=== PATIENT | male | born 1975 | race Two or more races ===

== ENCOUNTER 2019-06-27 23:11 | Emergency (ER) | payer SELFPAY ==
[~2019-06-27] VITALS: Ht 160 cm; Wt 88.6 kg
--- NOTE | 2019-06-27 23:33 | PHYS DOC ---
Adult General Chief Complaint Chief Complaint: SHORTNESS OF BREATH HPI HPI 43-year-old male presents to the emergency department complaints of shortness of breath. Patient states this is been ongoing for several days worsening over the last day. He denies any documented fever however he states he felt warm. Denies any nausea, vomiting, abdominal pain, diarrhea nothing makes his symptoms worse, nothing makes his symptoms better. Patient has no past medical history. Patient is taking no medications [id number]. He denies any chest pain. States he has had a sore throat. Review of Systems Review of Systems Constitutional: fever Respiratory: SOB Cardiovascular: No additional information not addressed in HPI [] GI: Denies abdominal pain, nausea, vomiting, bloody stools or diarrhea [] Musculoskeletal: Denies back pain or joint pain [] Integument: Denies rash or skin lesions [] Neurologic: Denies headache, focal weakness or sensory changes [] All other systems were reviewed and found to be within normal limits, except as documented in this note. Allergies Allergies Allergies Coded Allergies Type Severity Reaction Last Updated Verified No Known Drug Allergies 06/27/19 No Physical Exam Physical Exam Constitutional: Well developed, well nourished, no acute distress, non-toxic appearance. [] HENT: Normocephalic, atraumatic, bilateral external ears normal, oropharynx mois t, no oral exudates, nose normal. [] Eyes: PERRLA, EOMI, conjunctiva normal, no discharge. [] Neck: Normal range of motion, no tenderness, supple, no stridor. [] Cardiovascular:Heart rate regular rhythm, no murmur [] Lungs & Thorax: Bilateral breath sounds clear to auscultation [] Abdomen: Bowel sounds normal, soft, no tenderness, no masses, no pulsatile masses. [] Skin: Warm, dry, no erythema, no rash. [] Back: No tenderness, no CVA tenderness. [] Extremities: No tenderness,no edema. [] Neurologic: Alert and oriented X 3, no focal deficits noted. [] Psychologic: Affect normal, judgement normal, mood normal. [] Current Patient Data Vital Signs Vital Signs Date Time Temp Pulse Resp B/P (MAP) Pulse Ox O2 Delivery O2 Flow Rate FiO2 06/27/19 23:26 98.2 81 18 167/99 (121) 98 Room Air 98.2 Lab Values Laboratory Tests Test 06/27/19 23:20 06/27/19 23:23 Influenza Type A Antigen Negative (NEGATIVE) Influenza Type B Antigen Negative (NEGATIVE) White Blood Count 7.5 x10^3/uL (4.0-11.0) Red Blood Count 5.04 x10^6/uL (4.30-5.70) Hemoglobin 14.1 g/dL (13.0-17.5) Hematocrit 43.1 % (39.0-53.0) Mean Corpuscular Volume 85 fL (79-100) Mean Corpuscular Hemoglobin 28 pg (25-35) Mean Corpuscular Hemoglobin Concent 33 g/dL (31-37) Red Cell Distribution Width 13.1 % (11.5-14.5) Platelet Count 196 x10^3/uL (140-400) Neutrophils (%) (Auto) 41 % (31-73) Lymphocytes (%) (Auto) 43 % (24-48) Monocytes (%) (Auto) 12 % (0-9) H Eosinophils (%) (Auto) 2 % (0-3) Basophils (%) (Auto) 1 % (0-3) Neutrophils # (Auto) 3.1 x10^3/uL (1.8-7.7) Lymphocytes # (Auto) 3.2 x10^3/uL (1.0-4.8) Monocytes # (Auto) 0.9 x10^3/uL (0.0-1.1) Eosinophils # (Auto) 0.2 x10^3/uL (0.0-0.7) Basophils # (Auto) 0.0 x10^3/uL (0.0-0.2) Sodium Level 142 mmol/L (136-145) Potassium Level 3.9 mmol/L (3.5-5.1) Chloride Level 104 mmol/L (98-107) Carbon Dioxide Level 30 mmol/L (21-32) Anion Gap 8 (6-14) Blood Urea Nitrogen 26 mg/dL (8-26) Creatinine 1.1 mg/dL (0.7-1.3) Estimated GFR (Cockcroft-Gault) 73.4 BUN/Creatinine Ratio 24 (6-20) H Glucose Level 89 mg/dL (70-99) Calcium Level 9.1 mg/dL (8.5-10.1) Total Bilirubin 0.3 mg/dL (0.2-1.0) Aspartate Amino Transferase (AST) 30 U/L (15-37) Alanine Aminotransferase (ALT) 62 U/L (16-63) Alkaline Phosphatase 77 U/L (46-116) MV-Aqa-H-Type Natriuretic Peptide 10 pg/mL (0-124) Total Protein 7.2 g/dL (6.4-8.2) Albumin 3.9 g/dL (3.4-5.0) Albumin/Globulin Ratio 1.2 (1.0-1.7) Laboratory Tests 06/27/19 23:23 Laboratory Tests 06/27/19 23:23 EKG EKG EKG reviewed 0050, normal sinus rhythm, left axis deviation, no evidence of STEMI [] Radiology/Procedures Radiology/Procedures [facility] [address] [place] [address] IMAGING REPORT Signed PATIENT: PRASANNA MAYS ACCOUNT: [id number] : 1975 LOCATION: ER AGE: 43 SEX: M EXAM STATUS: REG ER ORD. PHYSICIAN: LUZ MARIA BAÑUELOS MD REASON: SOB PROCEDURE: PORTABLE CHEST 1V INDICATION: Shortness of breath COMPARISON: None. FINDINGS: Single view of chest obtained. Cardiac silhouette is prominent in size without focal airspace consolidation or pulmonary edema. Probable calcified granuloma left lung. IMPRESSION: * No focal airspace consolidation or edema. Electronically signed by: Andres Pemberton MD (06/27/2019 11:45 PM) [id number] DICTATED and SIGNED BY: ANDRES PEMBERTON MD DATE: 06/27/19 2345 [] Course & Med Decision Making Course & Med Decision Making Pertinent Labs and Imaging studies reviewed. (See chart for details) []43-year-old male presents to the emergency department complaints of shortness of breath. Patient states this is been ongoing for several days worsening over the last day. He denies any documented fever however he states he felt warm. Denies any nausea, vomiting, abdominal pain, diarrhea nothing makes his symptoms worse, nothing makes his symptoms better. Patient has no past medical history. Patient is taking no medications [id number]. He denies any chest pain. States he has had a sore throat. Labs/Imaging reviewed EKG unremarkable Influenza negative Recommend dc home and follow up with PCP Inhaler added (proair) [place] Disclaimer [place] Disclaimer This electronic medical record was generated, in whole or in part, using a voice recognition dictation system. Departure Departure Impression: Primary Impression: Dyspnea Disposition: 01 HOME, SELF-CARE Condition: IMPROVED Patient Instructions: Shortness of Breath, [id number] Additional Instructions: Recommend follow up with PCP Chest xray and EKG negative No evidence of acute findings suspicious for COVID No fluid or infection appreciated Cardiac enzymes negative Albuterol INH provided upon discharge - this may help with feelings of SOB Scripts Albuterol Sulfate (PROAIR HFA INHALER) 8.5 Gm Hfa.aer.ad 2 PUFF INH PRN Q6HRS PRN for SHORTNESS OF BREATH, #1 INHALER 0 Refills Prov: LUZ MARIA BAÑUELOS MD 06/28/19 The HEART Score for CP Pts HEART Score for Chest Pain: HEART Score for Chest Pain Response (Comments) Value History Slighlty/Non-Suspicious 0 ECG Normal 0 Age < 45 0 Risk Factors 1 or 2 Risk Factors 1 Troponin < Normal Limit 0 Total 1 Risk Factors: Risk Factors: DM, Current or recent (<one month) smoker, HTN, HLP, family history of CAD, obesity. Risk Scores: Score 0 - 3: 2.5% MACE over next 6 weeks - Discharge Home Score 4 - 6: 20.3% MACE over next 6 weeks - Admit for Clinical Observation Score 7 - 10: 72.7% MACE over next 6 weeks - Early Invasive Strategies Problem Qualifiers Primary Impression: Dyspnea Dyspnea type: unspecified Qualified Codes: R06.00 - Dyspnea, unspecified LUZ MARIA BAÑUELOS MD Jun 27, 2019 23:33
[2019-06-27 23:34] LABS: BASO % 1 % (0-3); EOS # 0.2 x10^3/uL (0.0-0.7); EOS % 2 % (0-3); HEMATOCRIT 43.1 % (39.0-53.0); HEMOGLOBIN 14.1 g/dL (13.0-17.5); LYMPH # 3.2 x10^3/uL (1.0-4.8); LYMPH % 43 % (24-48); MEAN CORPUSCULAR HEMOGLOBIN 28 pg (25-35); MEAN CORPUSCULAR HGB CONC 33 g/dL (31-37); MEAN CORPUSCULAR VOLUME 85 fL (79-100); MONO # 0.9 x10^3/uL (0.0-1.1); MONO % 12 % (0-9); NEUT # 3.1 x10^3/uL (1.8-7.7); NEUT % 41 % (31-73); PLATELET COUNT 196 x10^3/uL (140-400); RED BLOOD COUNT 5.04 x10^6/uL (4.30-5.70); RED CELL DISTRIBUTION WIDTH 13.1 % (11.5-14.5); WHITE BLOOD COUNT 7.5 x10^3/uL (4.0-11.0)
[2019-06-27 23:41] LABS: CALCIUM 9.1 mg/dL (8.5-10.1); CREATININE 1.1 mg/dL (0.7-1.3); GFR 73.4; POTASSIUM 3.9 mmol/L (3.5-5.1)
[2019-06-27 23:44] LABS: INFLUENZA A PATIENT NEGATIVE (NEGATIVE); INFLUENZA B PATIENT NEGATIVE (NEGATIVE)
[2019-06-27 23:47] LABS: ALBUMIN 3.9 g/dL (3.4-5.0); ALBUMIN/GLOBULIN RATIO 1.2 (1.0-1.7); TOTAL BILIRUBIN 0.3 mg/dL (0.2-1.0); TOTAL PROTEIN 7.2 g/dL (6.4-8.2)
--- NOTE | 2019-06-27 23:48 | RAD ---
INDICATION: Shortness of breath COMPARISON: None. FINDINGS: Single view of chest obtained. Cardiac silhouette is prominent in size without focal airspace consolidation or pulmonary edema. Probable calcified granuloma left lung. IMPRESSION: * No focal airspace consolidation or edema. Electronically signed by: Lloyd Blake MD (06/27/2019 11:45 PM) [id number]
[2019-06-28] MEDS ORDERED: ALBU2.5V8 INH (00:13)
[2019-06-28 00:50] VITALS: BP 140/82
--- NOTE | 2019-06-28 01:43 | EKG ---
[facility] [address] [place] [address] Test Date: 2019-06-27 Test Time: 23:42:00 Pat Name: PRASANNA MAYS Department: Room: Gender: M Boot Maker: : 1975 Requested By: LUZ MARIA BAÑUELOS Order Number: [id number] Reading MD: Measurements Intervals [place] Rate: 76 P: 35 OK: 158 QRS: -29 QRSD: 92 T: -1 QT: 338 QTc: 384 Interpretive Statements SINUS RHYTHM LEFTWARD AXIS OTHERWISE NORMAL ECG RI6.01 No previous ECG available for comparison
== END 2019-06-28 00:54 | disposition home or self-care (01) ==
LOC: ER 23:11
DX: R06.00 Dyspnea, unspecified (principal); R06.02 Shortness of breath; R50.9 Fever, unspecified
CPT/HCPCS: 36415; 71045; 80053; 83880; 84484; 85025; 87804; 93005; 99285